=== PATIENT | male | born 1930 | race Caucasian/White ===

== ENCOUNTER 2021-04-02 06:25 | Day surgery (SDC) | payer OTHER ==
[2021-03-29 09:45] LABS: Absolute Lymphocytes (CBC) 1.8 K/uL (0.7-4.9); Basophils % 0.8 % (0-1.3); Lymphocytes % 24.8 % (15.3-44.8); MPV 8.3 fL (7.6-11.3); RBC Red Blood Cell Count 4.42 M/uL (4.33-5.43)
[2021-03-29 09:47] LABS: Protime INR 0.97
[2021-03-29 10:01] LABS: Potassium 3.9 mmol/L (3.5-5.1)
--- NOTE | 2021-03-29 10:10 | RAD REPORT ---
EXAM DESCRIPTION: Racheal Mccrary (2 Views)03/29/2021 9:20 am CLINICAL HISTORY: Preop for catheterization COMPARISON: 1999 FINDINGS: The lungs appear clear of acute infiltrate. The heart is borderline enlarged Postsurgical changes involve the chest. Left pleural thickening IMPRESSION: No acute abnormalities displayed
[2021-03-29 10:13] LABS: Blood Morphology Comment NOT SEEN (NOT SEEN); Platelet Estimate DECR; White Blood Cell Scan OK (OK)
[2021-04-02] MEDS ORDERED: HEPA 1000U/500MLS 1,000 UNIT/500 ML BAG IV ONE (07:08)
[2021-04-02] MEDS ORDERED: LIDOCAINE 1% 20 ML MDV ONE (07:08)
[2021-04-02] MEDS ORDERED: ATROPINE SULF 1 MG/10 ML SYR IV ONE (07:18)
[2021-04-02] MEDS ORDERED: MIDAZOLAM HCL 2 MG/2 ML INJ ONE (07:18)
[2021-04-02] MEDS ORDERED: FENTANYL CITR 100 MCG/2 ML ONE (07:18)
[2021-04-02] MEDS ORDERED: NA CHLORIDE 0.9% 500 ML ONE (07:19)
[2021-04-02 10:19] VITALS: TEMP 97.1
[2021-04-02 14:17] VITALS: O2SAT 100
[2021-04-02 14:18] VITALS: BP 150/74
--- NOTE | 2021-04-02 22:36 | OP ---
Date of Procedure: 04/02/2021 Surgeon: Jonathan Chung MD Machinery Cleaner: Mr. Foreign Martinez. Procedure: Selective bilateral carotid angiogram. Indication: Cerebrovascular disease. Indication: Mr. Gomez is 89 with history of CAD, status post CABG, hypertension, dyslipidemia, TIAs , found to have severe bilateral carotid stenosis by Doppler. Carotid angiogram was planned for to y. Procedure In Detail: Patient was brought to the syrup machine laborer as an outpatient, prepped and draped in the routine sterile fashion, given Versed for sedation. A 6-Bulgarian sheath was introduced in the right c ommon femoral artery successfully. Angiography there was normal. StarClose was used to close the ca se. A JR4 catheter was used to select the right common brachiocephalic artery. Angiography there sh owed an 80% right ICA ostial. The JR4 was then used to select the left common carotid artery. He drew d a 95% ostial left ICA. External carotid arteries had mild diffuse plaquing throughout. 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 The patient tolerated the procedure well. There were no complications. A 6-Bulgarian sheath and catheters were used. Anesthesia: Total conscious sedation 45 minutes. Final Diagnosis: Severe cerebrovascular disease. Plan: For bilateral CEA in [place] and I will make arrangements for that. The patient will have the CD with him. Case was discussed with the family. We will make appointment with him to see a cardio vascular surgeon in [place]. The patient will remain in the hospital for 2 hours of bedrest. After his StarClose he can go home. I will see him in the office after his surger y. CELY/EZEQUIEL Voice ID: [id number] Report ID: [id number]
== END 2021-04-02 14:00 | disposition home or self-care (01) ==
LOC: CCL 06:25
DX: I65.23 Occlusion and stenosis of bilateral carotid arteries (principal); I25.10 Atherosclerotic heart disease of native coronary artery without angina pectoris; Q25.1 Coarctation of aorta; I10 Essential (primary) hypertension; E78.00 Pure hypercholesterolemia, unspecified; E78.2 Mixed hyperlipidemia; Z95.1 Presence of aortocoronary bypass graft; Z86.73 Personal history of transient ischemic attack (TIA), and cerebral infarction without residual deficits; Z87.891 Personal history of nicotine dependence; Z88.0 Allergy status to penicillin; Z88.6 Allergy status to analgesic agent; Z20.822 Contact with and (suspected) exposure to COVID-19; Z82.49 Family history of ischemic heart disease and other diseases of the circulatory system
CPT/HCPCS: 93005; 85025; 80048; 36415; 85610; 85730; 71046; 36222; U0002; C1893; J2250; J3010; J7040; J1644

== ENCOUNTER 2021-05-27 08:22 | Emergency (ER) | payer OTHER ==
[2021-05-27 09:37] LABS: Protime INR 0.99
[2021-05-27 09:40] LABS: Absolute Lymphocytes (CBC) 1.2 K/uL (0.7-4.9); Basophils % 0.5 % (0-1.3); Hematocrit 36.9 % (39.6-49.0); Lymphocytes % 10.5 % (15.3-44.8); RBC Red Blood Cell Count 4.08 M/uL (4.33-5.43)
[2021-05-27 09:43] LABS: Arterial Blood Carboxyhemoglob 1.8 % (0-1.5); Blood Gas Oxyhemoglobin 93.5 % (94-97)
[2021-05-27 09:52] LABS: ALT/SGPT 20 U/L (12-78); AST/SGOT 21 U/L (15-37); Albumin 3.4 g/dL (3.4-5.0); Alkaline Phosphatase 91 U/L (45-117); Amylase 59 U/L (25-115); BUN Blood Urea Nitrogen 19 mg/dL (7-18); Bicarbonate 26 mmol/L (21-32); Bilirubin Direct 0.3 mg/dL (0-0.2); Bilirubin Total 0.9 mg/dL (0.2-1.0); CKMB Creatine Kinase MB 1.2 ng/mL (1.0-3.6); Creatine Phosphokinase 88 U/L (39-308); Glucose Level 94 mg/dL (74-106); Lipase 97 U/L (73-393); Potassium 3.7 mmol/L (3.5-5.1); Protein, Total 7.4 g/dL (6.4-8.2); Sodium Level 132 mmol/L (136-145); Troponin (Emerg Dept Use Only) < 0.02 ng/mL (0.0-0.045)
--- NOTE | 2021-05-27 10:04 | RAD REPORT ---
EXAM DESCRIPTION: CT - Head Brain Wo Cont - 05/27/2021 9:55 am CLINICAL HISTORY: Alteration of awareness/confusion COMPARISON: None TECHNIQUE: Computed axial tomography of the head was obtained. IV contrast was not requested. All CT scans are performed using dose optimization technique as appropriate and may include automated exposure control or mA/KV adjustment according to patient size. FINDINGS: An intracranial bleed is not seen . The ventricles are normal in caliber. No extra-axial fluid collection is noted. Mild low-density areas within periventricular, deep and subcortical white matter likely represent isc hemic changes secondary to small vessel disease. Fluid within the sinuses/ mastoids is not seen. IMPRESSION: No acute intracranial abnormality is seen. If patient's symptoms persist MRI of the bra in would be recommended.
--- NOTE | 2021-05-27 10:09 | RAD REPORT ---
EXAM DESCRIPTION: Racheal Single View05/27/2021 10:02 am CLINICAL HISTORY: Somnolence COMPARISON: March 2021 FINDINGS: The lungs appear clear of acute infiltrate. The heart is mildly enlarged. Pacemaker leads are in place. IMPRESSION: No acute abnormalities displayed
[2021-05-27 11:36] LABS: Urine Blood Trace-intact (Negative); Urine Glucose Negative (Negative); Urine Protein Negative (Negative); Urine Specific Gravity 1.015 (1.005-1.030); Urine pH 6.5 (5.0-7.0)
--- NOTE | 2021-05-27 11:56 | RAD REPORT ---
EXAM DESCRIPTION: USCarotid Artery Msevxtele42/17/2021 11:37 am CLINICAL HISTORY: Carotid surgery/chest pain/confusion COMPARISON: None FINDINGS: The velocity of the right internal carotid artery equals 197 cm/sec. The right ICA/CCA rat io 4.1 Elevated velocity right external carotid artery without visualization of significant plaque The velocity of the left internal carotid artery equals 124 cm/sec. The left ICA/CCA ratio 1.6 Mild plaque is present within the carotid arteries. The vertebral arteries demonstrate antegrade flow IMPRESSION: Mild plaque within the carotid arteries . Elevated velocity right internal carotid artery probably secondary to it being tortuous. If the patient's symptoms do not resolve MRA neck may be helpful NASCET criteria used. Mild 0-49% stenosis Moderate 50-69% stenosis Severe 70-99% stenosis
[2021-05-27 12:04] LABS: Urine Bacteria NONE SEEN /HPF (NONE SEEN); Urine RBC <5 /HPF (NONE SEEN)
--- NOTE | 2021-05-27 12:43 | ER ---
Nurse's Notes [facility] Name: Blaine Gomez Age: 89 yrs Sex: Male : 1930 Arrival Date: 05/27/2021 Time: 08:22 Bed 8 Private MD: Shayan Boone V Diagnosis: Altered mental status, unspecified Presentation: 05/27 08:31 Chief complaint: Patient's son or daughter states: He had right carotid surgery at [address] on , discharged yesterday and was doing well. Checked on him this morning and he is disoriented, his speech is a little slurred, wobbly on his feet and fatigued. Called the hospital and they said to bring him here to be evaluated. Pt denies pain, pt denies urinary symptoms, pt reports feeling sleepy. Coronavirus screen: At this time, the client does not indicate any symptoms associated with coronavirus-19. Ebola Screen: No symptoms or risks identified at this time. Initial Sepsis Screen: Does the patient meet any 2 criteria? No. Patient's initial sepsis screen is negative. Does the patient have a suspected source of infection? No. Patient's initial sepsis screen is negative. Risk Assessment: Do you want to hurt yourself or someone else? Patient reports no desire to harm self or others. Onset of symptoms is unknown. 08:31 Method Of Arrival: Wheelchair [facility] 08:31 Acuity: MANDEEP 3 jl7 Triage Assessment: 08:35 General: Appears in no apparent distress. uncomfortable, Behavior is calm, cooperative, jl7 appropriate for age. Pain: Denies pain. Neuro: Level of Consciousness is awake, alert, obeys commands, Oriented to person, place, time, situation. Historical: - Allergies: 08:35 Codeine; jl7 08:35 PENICILLINS; jl7 - Home Meds: 08:35 atorvastatin oral [Active]; jl7 - PMHx: 08:35 Hypercholesterolemia; jl7 - PSHx: 08:35 bilateral carotid; Coronary artery bypass graft; jl7 - Immunization history:: Adult Immunizations up to date, Client reports receiving the 2nd dose of the Covid vaccine, Moderna. - Social history:: Smoking status: Patient denies any tobacco usage or history of. Screenin:48 Abuse screen: Denies threats or abuse. Denies injuries from another. Nutritional tw5 screening: No deficits noted. Tuberculosis screening: No symptoms or risk factors identified. Fall Risk None identified. Gait- Weak (10 pts.). Assessment: 08:48 General: Behavior is calm, cooperative, appropriate for age, Reports Nish, the son twEnoch states that his father just had surgery on his right carotid artery and was discharged from [facility] in [place] yesterday. However upon arrival to his fathers (Blaine) house Blaine was really listless, fatigued, and disoriented. General: Reports fatigue for. Pain: Denies pain. Pain. Neuro: Level of Consciousness is awake, alert, obeys commands, Oriented to person, place, time, situation, Reports weakness. Cardiovascular: Heart tones S1 S2 present Patient's skin is warm and dry. Respiratory: Breath sounds are clear bilaterally. Derm: Skin is fragile, is thin, has skin tears on forearms. 11:16 Reassessment: Patient appears in no apparent distress at this time. No changes from tw5 previously documented assessment. Patient and/or family updated on plan of care and expected duration. Pain level reassessed. 12:21 Reassessment: Patient appears in no apparent distress at this time. No changes from tw5 previously documented assessment. Patient and/or family updated on plan of care and expected duration. Pain level reassessed. Patient states feeling better. Patient states symptoms have improved. Pain: Denies pain. 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 Surgical team at [facility] in [place]. . tw5 12:54 Reassessment: Patient appears in no apparent distress at this time. No changes from tw5 previously documented assessment. Patient and/or family updated on plan of care and expected duration. Pain level reassessed. Patient states feeling better. Vital Signs: 08:31 BP 121 / 71; Pulse 82; Resp 17; Temp 97.8(O); Pulse Ox 100% on R/A; Weight 61.23 kg; jl7 Height 5 ft. 6 in. (167.64 cm); Pain 0/10; 08:54 BP 126 / 80; Pulse 79; Resp 20; Pulse Ox 99% on R/A; Pain 0/10; tw5 11:16 BP 116 / 70; Pulse 89; Resp 18; Pulse Ox 100% on R/A; Pain 0/10; tw5 12:25 BP 122 / 79; Pulse 86; Resp 20; Pulse Ox 97% on R/A; Pain 0/10; tw5 12:54 BP 114 / 73; Pulse 83; Resp 20; Temp 98.1; Pulse Ox 95% on R/A; Pain 0/10; tw5 08:31 Body Mass Index 21.79 (61.23 kg, 167.64 cm) jl7 ED Course: 08:22 Patient arrived in ED. am2 08:23 Shayan Boone MD is Private Physician. am2 08:35 Triage completed. jl7 08:35 Arm band placed on right wrist. jl7 08:40 Keenan Holloway MD is Attending Physician. kdr 08:48 Lisa Bustamante is Primary Nurse. tw5 08:48 Patient has correct armband on for positive identification. Placed in gown. Bed in low tw5 position. Call light in reach. Side rails up X2. Adult w/ patient. workforce management consultant on. Pulse ox on. NIBP on. Door closed. Noise minimized. Lights dimmed. Moved to private room. Warm blanket given. Verbal reassurance given. 08:52 EKG done, by ED staff, reviewed by Keenan Holloway MD. tw5 09:15 Inserted saline lock: 20 gauge in right antecubital area, using aseptic technique. jd3 Blood collected. 09:55 CT Head Brain wo Cont In Process Unspecified. EDMS 10:02 Chest Single View XRAY In Process Unspecified. EDMS 10:42 Amylase, Serum Sent. tw5 10:42 CBC with Diff Sent. tw5 10:42 CPK Sent. tw5 10:42 Basic Metabolic Panel Sent. tw5 10:42 Blood Culture Adult (2) Sent. tw5 10:43 COVID-19 SARS RT PCR (Document "Date of Onset" if Symptomatic) Sent. tw5 11:16 Ultrasound at the bedside. tw5 11:37 Carotid Artery Bilateral In Process Unspecified. EDMS 12:27 ED physician to see patient. tw5 12:41 Shayan Boone MD is Referral Physician. kdr 12:54 No provider procedures requiring assistance completed. IV discontinued, intact, tw5 bleeding controlled, No redness/swelling at site. Pressure dressing applied. Administered Medications: No medications were administered Outcome: 12:42 Discharge ordered by . kdr 12:54 Discharged to home ambulatory. tw5 12:54 Condition: good 12:54 Discharge instructions given to 12:54 Discharge instructions given to patient, family, Instructed on discharge instructions, follow up and referral plans. Demonstrated understanding of instructions, follow-up care. 12:55 Patient left the ED. tw5 Signatures: Dispatcher [employer] EDMS Keenan Holloway MD MD kdr Leal, Jahala RN RN jl7 Anne Reyes Jonathon RN RN jLisa Ash tw5 Corrections: (The following items were deleted from the chart) 08:38 08:35 PSHx: bilateral carotid; melissa jl7
--- NOTE | 2021-05-27 12:43 | EDPHYS ---
Physician Documentation [facility] Name: Blaine Gomez Age: 89 yrs Sex: Male : 1930 Arrival Date: 05/27/2021 Time: 08:22 Bed 8 Private MD: Shayan Boone V ED Physician Keenan Holloway HPI: 05/27 09:33 This 89 yrs old Male presents to ER via Wheelchair with complaints of Post kdr Surgical Pain, Altered Mental Status. 09:33 The patient presents with decreased mental status, decreased responsiveness. Onset: The kdr symptoms/episode began/occurred this morning. Possible causes: sepsis, Patient had carotid surgery on . Associated signs and symptoms: Pertinent positives: confusion, weakness. Patient's baseline: Neuro: alert and fully oriented, Motor: no deficits, Ambulation: walks without assistance, Speech: normal, The patient has a previous history of Recent surgery, According to the son, the patient is more somnolent today than he normally has been post procedure. The patient has not experienced similar symptoms in the past. The patient has been recently seen by a physician: For carotid surgery on . 15:47 Patient had carotid surgery at [facility] on . He was discharged kdr yesterday and was doing well. When his son checked on him this morning, he noted that he was disoriented. Speech seems slurred and he was wobbly on his feet and seemed fatigued. The patient had no other signs or symptoms and no other focal complaints. On arrival initial evaluation the patient appeared to be more or less at baseline. He did not appear toxic in any way. Historical: - Allergies: 08:35 Codeine; jl7 08:35 PENICILLINS; jl7 - Home Meds: 08:35 atorvastatin oral [Active]; jl7 - PMHx: 08:35 Hypercholesterolemia; jl7 - PSHx: 08:35 bilateral carotid; Coronary artery bypass graft; jl7 - Immunization history:: Adult Immunizations up to date, Client reports receiving the 2nd dose of the Covid vaccine, Moderna. - Social history:: Smoking status: Patient denies any tobacco usage or history of. ROS: 15:46 Constitutional: Negative for fever, chills, and weight loss, Eyes: Negative for injury, kdr pain, redness, and discharge, ENT: Negative for injury, pain, and discharge, Neck: Negative for injury, pain, and swelling, Cardiovascular: Negative for chest pain, palpitations, and edema, Respiratory: Negative for shortness of breath, cough, wheezing, and pleuritic chest pain, Abdomen/GI: Negative for abdominal pain, nausea, vomiting, diarrhea, and constipation, Back: Negative for injury and pain, : Negative for injury, bleeding, discharge, and swelling, MS/Extremity: Negative for injury and deformity, Skin: Negative for injury, rash, and discoloration, Psych: Negative for depression, anxiety, suicide ideation, homicidal ideation, and hallucinations, Allergy/Immunology: Negative for hives, rash, and allergies, Endocrine: Negative for neck swelling, polydipsia, polyuria, polyphagia, and marked weight changes, Hematologic/Lymphatic: Negative for swollen nodes, abnormal bleeding, and unusual bruising. 15:46 Neuro: Positive for altered mental status, weakness. Exam: 11:13 ECG was reviewed by the Attending Physician. kdr 15:47 Constitutional: This is a well developed, well nourished patient who is awake, alert, kdr and in no acute distress. Head/Face: Normocephalic, atraumatic. Eyes: Pupils equal round and reactive to light, extra-ocular motions intact. Lids and lashes normal. Conjunctiva and sclera are non-icteric and not injected. Cornea within normal limits. Periorbital areas with no swelling, redness, or edema. Neck: Trachea midline, no thyromegaly or masses palpated, and no cervical lymphadenopathy. Supple, full range of motion without nuchal rigidity, or vertebral point tenderness. No Meningismus. Chest/axilla: Normal chest wall appearance and motion. Nontender with no deformity. No lesions are appreciated. Cardiovascular: Regular rate and rhythm with a normal S1 and S2. No gallops, murmurs, or rubs. Normal PMI, no JVD. No pulse deficits. Respiratory: Lungs have equal breath sounds bilaterally, clear to auscultation and percussion. No rales, rhonchi or wheezes noted. No increased work of breathing, no retractions or nasal flaring. Abdomen/GI: Soft, non-tender, with normal bowel sounds. No distension or tympany. No guarding or rebound. No evidence of tenderness throughout. Back: No spinal tenderness. No costovertebral tenderness. Full range of motion. Skin: Warm, dry with normal turgor. Normal color with no rashes, no lesions, and no evidence of cellulitis. MS/ Extremity: Pulses equal, no cyanosis. Neurovascular intact. Full, normal range of motion. Neuro: Awake and alert, GCS 15, oriented to person, place, time, and situation. Cranial nerves II-XII grossly intact. Motor strength 5/5 in all extremities. Sensory grossly intact. Cerebellar exam normal. Normal gait. Psych: Awake, alert, with orientation to person, place and time. Behavior, mood, and affect are within normal limits. 15:47 Neck: There is postop surgical incisions on the right inferior aspect of the neck which appear to be healing appropriately. Vital Signs: 08:31 BP 121 / 71; Pulse 82; Resp 17; Temp 97.8(O); Pulse Ox 100% on R/A; Weight 61.23 kg; jl7 Height 5 ft. 6 in. (167.64 cm); Pain 0/10; 08:54 BP 126 / 80; Pulse 79; Resp 20; Pulse Ox 99% on R/A; Pain 0/10; tw5 11:16 BP 116 / 70; Pulse 89; Resp 18; Pulse Ox 100% on R/A; Pain 0/10; tw5 12:25 BP 122 / 79; Pulse 86; Resp 20; Pulse Ox 97% on R/A; Pain 0/10; tw5 12:54 BP 114 / 73; Pulse 83; Resp 20; Temp 98.1; Pulse Ox 95% on R/A; Pain 0/10; tw5 08:31 Body Mass Index 21.79 (61.23 kg, 167.64 cm) jl7 MDM: 12:38 ED course: Reviewed and discussed all findings including CT and Doppler report. I also kdr discussed the case with the on-call resident at the time. The resident for the surgical service was primarily concerned with any issues regarding the recent carotid surgery. Specifically aneurysm or other complications. Report did not show that. After discussing the case with both the patient and son, the decision was made by them to decline transfer to the medical service in [place] at [facility]. He indicated he will follow up or return here if needed Otherwise will follow-up as scheduled.. 12:42 Patient medically screened. kdr 15:57 Data reviewed: vital signs, nurses notes, lab test result(s), radiologic studies. kdr Counseling: I had a detailed discussion with the patient and/or guardian regarding: the historical points, exam findings, and any diagnostic results supporting the discharge/admit diagnosis, lab results, radiology results, the need for outpatient follow up. ED course: Thoroughly discussed all aspects of the patient's presentation and findings. Offered to transfer the patient to [facility] or remain here with neurology consult. Patient asked to be discharged. The son was present at the time of these discussions and was in agreement with the disposition home. 15:58 ED course: In my discussions I indicated that a stroke could not be definitively ruled kdr out without MRI and possible neurological consultation. Patient and son indicated that they understood this but opted to be discharged home for follow-up as scheduled. 05/27 08:58 Order name: Amylase, Serum kdr 05/27 08:58 Order name: Basic Metabolic Panel kdr 05/27 08:58 Order name: Blood Culture Adult (2) kdr 05/27 08:58 Order name: CBC with Diff kdr 05/27 08:58 Order name: CPK kdr 05/27 08:58 Order name: Ckmb; Complete Time: 10:28 kdr 05/27 08:58 Order name: LFT's; Complete Time: 10:28 kdr 05/27 08:58 Order name: Lactate; Complete Time: 10:28 kdr 05/27 08:58 Order name: Lipase; Complete Time: 10:28 kdr 05/27 08:58 Order name: Procalcitonin; Complete Time: 10:28 kdr 05/27 08:58 Order name: Protime (+inr); Complete Time: 10:28 kdr 05/27 08:58 Order name: Ptt, Activated; Complete Time: 10:28 kdr 05/27 08:58 Order name: Troponin (emerg Dept Use Only); Complete Time: 10:28 kdr 05/27 08:58 Order name: Urine Microscopic Only; Complete Time: 12:24 kdr 05/27 08:58 Order name: Chest Single View XRAY; Complete Time: 10:28 kdr 05/27 08:58 Order name: Accucheck; Complete Time: 09:20 kdr 05/27 08:58 Order name: Cardiac monitoring; Complete Time: 08:58 kdr 05/27 08:58 Order name: EKG - Nurse/Tech; Complete Time: 08:58 kdr 05/27 08:58 Order name: IV Saline Lock - Large Bore; Complete Time: 09:19 kdr 05/27 08:58 Order name: Labs collected and sent; Complete Time: 09:19 kdr 05/27 08:58 Order name: Amylase; Complete Time: 10:28 EDMS 05/27 08:58 Order name: Basic Metabolic Panel; Complete Time: 10:28 EDMS 05/27 08:59 Order name: ABG; Complete Time: 10:28 kdr 05/27 08:59 Order name: Blood Culture EDMS 05/27 08:59 Order name: CBC with Automated Diff; Complete Time: 10:28 EDMS 05/27 08:59 Order name: Creatine Phosphokinase; Complete Time: 10:28 EDMS 05/27 09:00 Order name: COVID-19 SARS RT PCR (Document "Date of Onset" if Symptomatic) kdr 05/27 09:37 Order name: CT Head Brain wo Cont; Complete Time: 10:28 kdr 05/27 10:35 Order name: Carotid Artery Bilateral; Complete Time: 12:24 EDMS 05/27 11:36 Order name: Urine Dipstick-Ancillary; Complete Time: 11:42 EDMS 05/27 08:58 Order name: O2 Per Protocol; Complete Time: 08:58 kdr 05/27 08:58 Order name: O2 Sat Monitoring; Complete Time: 08:58 kdr 05/27 08:58 Order name: Urine Dipstick-Ancillary (obtain specimen); Complete Time: 11:36 kdr EC:13 Rate is 81 beats/min. Rhythm is regular, Sinus arrythmia with No ectopy. QRS [place] is kdr Normal. ID interval is normal. QRS interval is normal. QT interval is normal. Clinical impression: Sinus arrythmia. Administered Medications: No medications were administered Disposition Summary: 05/27/21 12:42 Discharge Ordered Location: Home kdr Problem: new kdr Symptoms: have improved kdr Condition: Stable kdr Diagnosis - Altered mental status, unspecified kdr Followup: kdr - With: Shayan Boone MD - When: 2 - 3 days - Reason: If symptoms return, Further diagnostic work-up, Recheck today's complaints, Continuance of care, Re-evaluation by your physician Discharge Instructions: - Discharge Summary Sheet kdr - Confusion kdr Forms: - Medication Reconciliation Form kdr - Thank You Letter kdr Signatures: Dispatcher [employer] Keenan Thrasher MD MD kdr Ricardo Bello RN RN jl7 Corrections: (The following items were deleted from the chart) 08:38 08:35 PSHx: bilateral carotid; jl7 jl7
[2021-05-27 13:14] VITALS: BP 114/73; TEMP 98.1; O2SAT 95
== END 2021-05-27 12:55 | disposition home or self-care (01) ==
LOC: ER 08:22
DX: R41.82 Altered mental status, unspecified (principal); Z98.890 Other specified postprocedural states; E78.00 Pure hypercholesterolemia, unspecified; Z95.1 Presence of aortocoronary bypass graft; Z20.822 Contact with and (suspected) exposure to COVID-19; Z88.0 Allergy status to penicillin; Z88.5 Allergy status to narcotic agent
CPT/HCPCS: 93005; 87040 ×2; 85025; 80048; 36415; 82150; 82550; 85610; 80076; 83605; 85730; 84484; 82553; 83690; 84145; 70450; 71045; 93880; 82805; 99284; U0003; 81003; 81015

== ENCOUNTER 2021-06-12 07:10 | Day surgery (SDC) | payer OTHER ==
[2021-06-12] MEDS ORDERED: LIDOCAINE 1% 20 ML MDV ONE (07:46)
[2021-06-12] MEDS ORDERED: HEPA 1000U/500MLS 1,000 UNIT/500 ML BAG IV ONE (07:46)
[2021-06-12] MEDS ORDERED: NA CHLORIDE 0.9% 500 ML ONE (07:50)
[2021-06-12] MEDS ORDERED: MIDAZOLAM HCL 2 MG/2 ML INJ ONE (08:11)
[2021-06-12] MEDS ORDERED: FENTANYL CITR 100 MCG/2 ML ONE (08:11)
[2021-06-12] MEDS ORDERED: ATROPINE SULF 1 MG/10 ML SYR IV ONE (08:11)
[2021-06-12 08:23] VITALS: TEMP 97.1
[2021-06-12 10:02] VITALS: BP 151/70; O2SAT 98
--- NOTE | 2021-06-12 15:26 | OP ---
Surgeon: Jonathan Chung MD Lookback Coordinator: Mr. Keenan Bernal. The patient will remain in the hospital for 2 hours after bedrest. He will go home and I will see christelle m in the office in the next 2 weeks. Procedure Performed: Admitted to my service as an outpatient on 06/12/2021 for selective bilateral c arotid angiograms. Indication: Abnormal carotid Doppler bilaterally worse on the left than the right. Mr. Gomez is 89 . Has had a history of hypertension, dyslipidemia, and coronary artery disease, status post CABG. Procedure In Detail: Brought to the quality lab assoc today outpatient, prepped and draped in routine sterile fashion. Given Versed and fentanyl for sedation. A JR4 6-Samoan catheter was used to do the diagno stic carotid angiogram. He had a 6-Samoan sheath introduced in the right common femoral artery succe ssfully using the Seldinger technique and 10 cc of Xylocaine. Separately injected the right common c arotid and left common carotid. He had diffuse plaquing in both common carotids. The left external carotid had minor plaquing. The right one had 70% stenosis. Both ICAs had 50% stenosis. They were tortuous, kinked. There were no complications. Blood Loss: 5 cc. Anesthesia: Total conscious sedation 45 minutes. Angiography in the groin was normal. Angio-Seal was used to close the case. Final Diagnosis: [id number] cerebrovascular disease. Plan: To continue medical therapy. CELY/EZEQUIEL Voice ID: [id number] Report ID: [id number]
== END 2021-06-12 09:54 | disposition home or self-care (01) ==
LOC: CCL 07:10
DX: I65.23 Occlusion and stenosis of bilateral carotid arteries (principal); I77.1 Stricture of artery; I25.10 Atherosclerotic heart disease of native coronary artery without angina pectoris; Z88.0 Allergy status to penicillin; Z88.6 Allergy status to analgesic agent; Z20.822 Contact with and (suspected) exposure to COVID-19
CPT/HCPCS: 36222; U0003; C1893; J2250; J3010; J7040; J1644

== ENCOUNTER 2022-01-02 09:45 | Emergency (ER) | payer OTHER ==
--- OUTSIDE RECORDS SUMMARY | 2022-01-02 09:48 | XMS REPORT | Continuity of Care Document ---
:[address] [facility] t Address [address] [place] [address] [address]. [address] [place] [address] Care Team Providers Name Role Phone OLIVA WHITE Attending Clinician Unavailable OLIVA WHITE Admitting Clinician Unavailable Payers Payer Name Policy Type Policy Number Effective Date Expiration Date Shahriar maldonado MEDICARE A B [id number] 1997 00:00:00 GENERIC MEDICARE [id number] 2008 SUPPLEMENT 00:00:00 Problems This patient has no known problems. Allergies, Adverse Reactions, Alerts Allergy Allergy Status Severity Reaction(s) Onset Inactive Treating Comm ents Source Name Type Date Date Clinician CODEINE Allergy Active High Other [facility] 04-04 00:00: 00 PENICILL Allergy Active [facility] IN 04-04 00:00: 00 Medications This patient has no known medications. Vital Signs Vital Name Observation Time Observation Value Comments Source WEIGHT 2021-04-10 07:01:00 59.1 kg HEIGHT 2021-04-09 08:18:00 165 cm WEIGHT 2021-04-09 08:18:00 54.8 kg HEIGHT 2021-04-05 09:52:00 165 cm WEIGHT 2021-04-05 09:52:00 57.6 kg HEIGHT 2021-06-07 09:40:00 167.6 cm WEIGHT 2021-05-25 05:00:00 60.873 kg HEIGHT 2021-05-24 06:10:00 167.6 cm WEIGHT 2021-05-24 06:10:00 58.968 kg WEIGHT 2021-05-25 05:00:00 60.873 kg HEIGHT 2021-05-24 06:10:00 167.6 cm WEIGHT 2021-05-24 06:10:00 58.968 kg HEIGHT 2021-04-24 09:20:00 165 cm WEIGHT 2021-04-24 09:20:00 57.607 kg HEIGHT 2021-04-24 09:20:00 165 cm WEIGHT 2021-04-24 09:20:00 57.607 kg WEIGHT 2021-04-10 07:01:00 59.1 kg HEIGHT 2021-04-09 08:18:00 165 cm WEIGHT 2021-04-09 08:18:00 54.8 kg HEIGHT 2021-04-05 09:52:00 165 cm WEIGHT 2021-04-05 09:52:00 57.6 kg HEIGHT 2021-04-04 10:59:00 165.1 cm WEIGHT 2021-04-04 10:59:00 57.607 kg HEIGHT 2021-04-04 10:59:00 165.1 cm WEIGHT 2021-04-04 10:59:00 57.607 kg Procedures This patient has no known procedures. Encounters Start End Encounter Admission Attending Care Care Encounter Source Date/Time Date/Time Type Type Clinicians Facility Department ID 2021-05-20 Inpatient TONY, [facility] Surgery [id number] SLE 12:23:23 JOSELUIS 2021-05-20 Inpatient [facility] Surgery [id number] SLE 10:01:13 JOSELUIS 2021-06-07 2021-06-07 Outpatient [facility] [id number] SLE 10:39:33 23:59:00 2021-06-07 2021-06-07 Outpatient [facility] [id number] [facility] 09:30:33 09:30:33 JOSELUIS 2021-05-30 2021-05-30 Outpatient TONY [facility] [id number] SLE 00:00:00 00:00:00 JOSELUIS 2021-05-24 2021-05-26 [facility]patient [facility] Surgery [id number] SLE 05:27:00 11:40:00 JOSELUIS 2021-05-24 2021-05-[address] [facility] [id number] [facility] 05:27:00 23:59:00 Allison 2021-05-02 2021-05-02 Outpatient SLE SLE [id number] SLE 00:00:00 00:00:00 2021-04-24 2021-04-24 Outpatient NELLY PARKER [facility] [id number] SLE 00:00:00 00:00:00 JOSELUIS 2021-04-09 2021-04-[address] [facility] [id number] [facility] 07:49:00 23:59:00 [facility] 2021-04-05 2021-04-05 Outpatient MED[facility]AT [facility] [id number] SLE 00:00:00 00:00:00 2021-04-04 2021-04-04 Outpatient MEDHAT WHITE [facility] [id number] SLE 00:00:00 00:00:00 JOSELUIS Results Test Description Test Time Test Comments Results Result Sourc e Comments TISSUE EXAM 2021-05-28 Surgical Pathology 18:16:28 Report Case: [id number] Authorizing Provider: Joseluis White, Collected: 05/24/2021 09:11 AM Ordering Location: [facility] Received: 05/24/2021 01:55 PM PERIOPERATIVE SERVICES Pathologist: Justen Andrew MD Specimen: Plaque, Right Carotid Plaque ARTERY, LEFT CAROTID, ENDARTERECTOMY:CALCIFI C ATHEROSCLEROTIC PLAQUE Signing Pathologist Direct Phone Line: [phone] ally signed by Justen Andrew MD on 05/28/2021 at 6:16 [id number]; [id number]. PlaqueA. Received fresh labeled with the patient's name, MRN, and "right carotid plaque" is a 9 cm in length by from 0.5 to 1.1 cm in diameter previously opened, cylindrical vascular tissue with marked calcification and thickening of the wall away from the bifurcated end. The wall ranges in thickness from 0.1 to 0.7 cm. The internal surface displays yellow calcified plaque and areas of friable hemorrhage. The external surface is roughened and fibrous. The cut surface of the thickest segment revealed friable dozier-red to yellow calcification. Glaze Maker sections are submitted in cassette A1 following decalcification.(KRISTEL, resident)Performed CBC (HEMOGRAM ONLY) 2021-05-26 09:35:19 Test Item Value Reference Range Interpretation Comme nts WHITE BLOOD CELL COUNT (BEAKER) (test code = 775) 10.8 K/ L 3.5- 10.5 H RED BLOOD CELL COUNT (BEAKER) (test code = 761) 4.05 M/ L 4.63-6 .08 L HEMOGLOBIN (BEAKER) (test code = 410) 12.4 GM/DL 13.7-17.5 L HEMATOCRIT (BEAKER) (test code = 411) 36.6 % 40.1-51.0 L MEAN CORPUSCULAR VOLUME (BEAKER) (test code = 753) 90.4 fL 79. 0-92.2 MEAN CORPUSCULAR HEMOGLOBIN (BEAKER) (test code = 751) 30.6 pg 25.7-32.2 MEAN CORPUSCULAR HEMOGLOBIN CONC (BEAKER) (test code = 752) 33.9 GM/DL 32.3-36.5 RED CELL DISTRIBUTION WIDTH (BEAKER) (test code = 412) 13.5 % 11.6-14.4 PLATELET COUNT (BEAKER) (test code = 756) 151 K/CU MM 150-450 MEAN PLATELET VOLUME (BEAKER) (test code = 754) 9.5 fL 9.4-12 .4 NUCLEATED RED BLOOD CELLS (BEAKER) (test code = 413) 0 /100 WBC 0 -0 BASIC METABOLIC [id number] 05:22:59 Test Item Value Reference Range Interpretation Comments SODIUM (BEAKER) 133 meq/L 136-145 L (test code = 381) POTASSIUM (BEAKER) 3.8 meq/L 3.5-5.1 (test code = 379) CHLORIDE (BEAKER) 99 meq/L 98-107 (test code = 382) CO2 (BEAKER) (test 24 meq/L 22-29 code = 355) BLOOD UREA NITROGEN 14 mg/dL 7-21 (BEAKER) (test code = 354) CREATININE (BEAKER) 0.82 mg/dL 0.57-1.25 (test code = 358) GLUCOSE RANDOM 92 mg/dL 70-105 (BEAKER) (test code = 652) CALCIUM (BEAKER) 9.1 mg/dL 8.4-10.2 (test code = 697) EGFR (BEAKER) (test 89 mL/min/1.73 ESTIMA TORI GFR IS code = 1092) sq m NOT ACCURATE CREATININE CLEARANCE IN PREDICTING GLOMERULAR FILTRATION RATE . ESTIMATED GFR I S NOT APPLICABLE FOR DIALYSIS PATIEN TS. Shot Polisher ID - JAKE GCBC (HEMOGRAM ONLY)2021-05-25 08:13:43 Test Item Value Reference Range Interpretation Comments WHITE BLOOD CELL COUNT (BEAKER) 17.2 K/ L 3.5-10.5 H (test code = 775) RED BLOOD CELL COUNT (BEAKER) 3.78 M/ L 4.63-6.08 L (test code = 761) HEMOGLOBIN (BEAKER) (test code = 11.7 GM/DL 13.7-17.5 L 410) HEMATOCRIT (BEAKER) (test code = 35.7 % 40.1-51.0 L 411) MEAN CORPUSCULAR VOLUME (BEAKER) 94.4 fL 79.0-92.2 H (test code = 753) MEAN CORPUSCULAR HEMOGLOBIN 31.0 pg 25.7-32.2 (BEAKER) (test code = 751) MEAN CORPUSCULAR HEMOGLOBIN CONC 32.8 GM/DL 32.3-36.5 (BEAKER) (test code = 752) RED CELL DISTRIBUTION WIDTH 13.8 % 11.6-14.4 (BEAKER) (test code = 412) PLATELET COUNT (BEAKER) (test 167 K/CU MM 150-450 code = 756) MEAN PLATELET VOLUME (BEAKER) 11.0 fL 9.4-12.4 (test code = 754) NUCLEATED RED BLOOD CELLS 0 /100 WBC 0-0 (BEAKER) (test code = 413) No platelet clumps seenBASIC METABOLIC [id number] 07:33:54 Test Item Value Reference Range Interpretation Comments SODIUM (BEAKER) 133 meq/L 136-145 L (test code = 381) POTASSIUM (BEAKER) 5.0 meq/L 3.5-5.1 (test code = 379) CHLORIDE (BEAKER) 99 meq/L 98-107 (test code = 382) CO2 (BEAKER) (test 27 meq/L 22-29 code = 355) BLOOD UREA NITROGEN 16 mg/dL 7-21 (BEAKER) (test code = 354) CREATININE (BEAKER) 0.94 mg/dL 0.57-1.25 (test code = 358) GLUCOSE RANDOM 96 mg/dL 70-105 (BEAKER) (test code = 652) CALCIUM (BEAKER) 9.4 mg/dL 8.4-10.2 (test code = 697) EGFR (BEAKER) (test 76 mL/min/1.73 ESTIMA TORI GFR IS code = 1092) sq m NOT ACCURATE CREATININE CLEARANCE IN PREDICTING GLOMERULAR FILTRATION RATE . ESTIMATED GFR I S NOT APPLICABLE FOR DIALYSIS PATIEN TS. Shot Polisher ID - EMERSONHGB/HCT (H&H) - STAT [id number] 09:50:26 Test Item Value Reference Range Interpretation Comments HEMOGLOBIN (BEAKER) (test code = 11.7 GM/DL 13.0-16.8 L 410) HEMATOCRIT (BEAKER) (test code = 34.0 % 40.0-50.0 L 411) [id number] 09:07:38 Test Item Value Reference Range Interpretation Comments ACTIVATED CLOTTING TIME 230 sec : 74 -137 seconds, (BEAKER) (test code = Baseli ne: TESTED AT 441) [facility] [address] [facility], [address] 30: Shot Polisher/Techni cassie ID = [id number] for JONES OCHOA [id number] 09:07:08 Test Item Value Reference Range Interpretation Comments ACTIVATED CLOTTING TIME 125 sec : 74 -137 seconds, (BEAKER) (test code = Baseli ne: TESTED AT 441) [facility] [address] [place] [address], 770 30: Shot Polisher/Techni cassie ID = [id number] for JONES OCHOA BASIC METABOLIC [id number] 07:32:53 Test Item Value Reference Range Interpretation Comments SODIUM (BEAKER) 139 meq/L 136-145 (test code = 381) POTASSIUM (BEAKER) 4.3 meq/L 3.5-5.1 Specimen slightly (test code = 379) hemolyzed CHLORIDE (BEAKER) 105 meq/L 98-107 (test code = 382) CO2 (BEAKER) (test 23 meq/L 22-29 code = 355) BLOOD UREA NITROGEN 14 mg/dL 7-21 (BEAKER) (test code = 354) CREATININE (BEAKER) 0.95 mg/dL 0.57-1.25 Specimen slightly (test code = 358) hemolyzed GLUCOSE RANDOM 78 mg/dL 70-105 (BEAKER) (test code = 652) CALCIUM (BEAKER) 9.4 mg/dL 8.4-10.2 (test code = 697) EGFR (BEAKER) (test 75 mL/min/1.73 ESTIMA TORI GFR IS code = 1092) sq m NOT ACCURATE CREATININE CLEARANCE IN PREDICTING GLOMERULAR FILTRATION RATE . ESTIMATED GFR I S NOT APPLICABLE FOR DIALYSIS PATIEN TS. Shot Polisher ID - JAKE GCBC W/PLT COUNT & AUTO [id number] 07:19:58 Test Item Value Reference Range Interpretation Comments WHITE BLOOD CELL COUNT 9.1 K/ L 3.5-10.5 (BEAKER) (test code = 775) RED BLOOD CELL COUNT 4.43 M/ L 4.63-6.08 L (BEAKER) (test code = 761) HEMOGLOBIN (BEAKER) 13.4 GM/DL 13.7-17.5 L (test code = 410) HEMATOCRIT (BEAKER) 42.4 % 40.1-51.0 (test code = 411) MEAN CORPUSCULAR VOLUME 95.7 fL 79.0-92.2 H (BEAKER) (test code = 753) MEAN CORPUSCULAR 30.2 pg 25.7-32.2 HEMOGLOBIN (BEAKER) (test code = 751) MEAN CORPUSCULAR 31.6 GM/DL 32.3-36.5 L HEMOGLOBIN CONC (BEAKER) (test code = 752) RED CELL DISTRIBUTION 13.9 % 11.6-14.4 WIDTH (BEAKER) (test code = 412) PLATELET COUNT (BEAKER) Unab le to report (test code = 756) Platelets due to clumps seen. Pl ease resend lavender and blue top to cor rect the platelets v alue MEAN PLATELET VOLUME 11.3 fL 9.4-12.4 (BEAKER) (test code = 754) NUCLEATED RED BLOOD 0 /100 WBC 0-0 CELLS (BEAKER) (test code = 413) NEUTROPHILS RELATIVE 57 % PERCENT (BEAKER) (test code = 429) LYMPHOCYTES RELATIVE 26 % PERCENT (BEAKER) (test code = 430) MONOCYTES RELATIVE 12 % PERCENT (BEAKER) (test code = 431) EOSINOPHILS RELATIVE 3 % PERCENT (BEAKER) (test code = 432) BASOPHILS RELATIVE 0 % PERCENT (BEAKER) (test code = 437) NEUTROPHILS ABSOLUTE 5.18 K/ L 1.78-5.38 COUNT (BEAKER) (test code = 670) LYMPHOCYTES ABSOLUTE 2.36 K/ L 1.32-3.57 COUNT (BEAKER) (test code = 414) MONOCYTES ABSOLUTE 1.10 K/ L 0.30-0.82 H COUNT (BEAKER) (test code = 415) EOSINOPHILS ABSOLUTE 0.31 K/ L 0.04-0.54 COUNT (BEAKER) (test code = 416) BASOPHILS ABSOLUTE 0.04 K/ L 0.01-0.08 COUNT (BEAKER) (test code = 417) IMMATURE 1 % 0-1 GRANULOCYTES-RELATIVE PERCENT (BEAKER) (test code = 2801) PROTHROMBIN TIME/[id number] 06:24:27 Test Item Value Reference Range Interpretation Comments PROTIME (BEAKER) 12.4 seconds 11.9-14.2 (test code = 759) INR (BEAKER) (test 0.95 See_Comment [Automat ed message] code = 370) The system [employer] generated this result transmitted ref erence range: <=5.90. The reference range was not used to int erpret this result as normal/abnormal . RECOMMENDED COUMADIN/WARFARIN INR THERAPY RANGESSTANDARD DOSE: 2.0 - 3.0 Includes: PROPHYLAXIS forvenous thrombosis, systemic embolization; TREATMENT for venous thrombosis and/or pulmonary embolus.HIGH RISK: Target INR is 2.5-3.5 for patients with mechanical heart valves.[id number] 11:09:33 Test Item Value Reference Range Interpretation Comments PARTIAL THROMBOPLASTIN TIME 40.6 seconds 22.5-36.0 H (BEAKER) (test code = 760) PROTHROMBIN TIME/[id number] 11:08:37 Test Item Value Reference Range Interpretation Comments PROTIME (BEAKER) 12.8 seconds 11.9-14.2 (test code = 759) INR (BEAKER) (test 0.98 See_Comment [Automat ed message] code = 370) The system [employer] generated this result transmitted ref erence range: <=5.90. The reference range was not used to int erpret this result as normal/abnormal . RECOMMENDED COUMADIN/WARFARIN INR THERAPY RANGESSTANDARD DOSE: 2.0 - 3.0 Includes: PROPHYLAXIS forvenous thrombosis, systemic embolization; TREATMENT for venous thrombosis and/or pulmonary embolus.HIGH RISK: Target INR is 2.5-3.5 for patients with mechanical heart valves.BASIC METABOLIC [id number] 11:07:08 Test Item Value Reference Range Interpretation Comments SODIUM (BEAKER) 139 meq/L 136-145 (test code = 381) POTASSIUM (BEAKER) 4.1 meq/L 3.5-5.1 (test code = 379) CHLORIDE (BEAKER) 102 meq/L 98-107 (test code = 382) CO2 (BEAKER) (test 28 meq/L 22-29 code = 355) BLOOD UREA NITROGEN 12 mg/dL 7-21 (BEAKER) (test code = 354) CREATININE (BEAKER) 0.90 mg/dL 0.57-1.25 (test code = 358) GLUCOSE RANDOM 86 mg/dL 70-105 (BEAKER) (test code = 652) CALCIUM (BEAKER) 9.7 mg/dL 8.4-10.2 (test code = 697) EGFR (BEAKER) (test 80 mL/min/1.73 ESTIMA TORI GFR IS code = 1092) sq m NOT ACCURATE CREATININE CLEARANCE IN PREDICTING GLOMERULAR FILTRATION RATE . ESTIMATED GFR I S NOT APPLICABLE FOR DIALYSIS PATIEN TS. Shot Polisher ID - KERI WCBC W/PLT COUNT & AUTO [id number] 10:50:44 Test Item Value Reference Range Interpretation Comments WHITE BLOOD CELL COUNT (BEAKER) 9.2 K/ L 3.5-10.5 (test code = 775) RED BLOOD CELL COUNT (BEAKER) 4.38 M/ L 4.63-6.08 L (test code = 761) HEMOGLOBIN (BEAKER) (test code = 13.4 GM/DL 13.7-17.5 L 410) HEMATOCRIT (BEAKER) (test code = 40.3 % 40.1-51.0 411) MEAN CORPUSCULAR VOLUME (BEAKER) 92.0 fL 79.0-92.2 (test code = 753) MEAN CORPUSCULAR HEMOGLOBIN 30.6 pg 25.7-32.2 (BEAKER) (test code = 751) MEAN CORPUSCULAR HEMOGLOBIN CONC 33.3 GM/DL 32.3-36.5 (BEAKER) (test code = 752) RED CELL DISTRIBUTION WIDTH 13.6 % 11.6-14.4 (BEAKER) (test code = 412) PLATELET COUNT (BEAKER) (test 169 K/CU MM 150-450 code = 756) MEAN PLATELET VOLUME (BEAKER) 9.3 fL 9.4-12.4 L (test code = 754) NUCLEATED RED BLOOD CELLS 0 /100 WBC 0-0 (BEAKER) (test code = 413) NEUTROPHILS RELATIVE PERCENT 66 % (BEAKER) (test code = 429) LYMPHOCYTES RELATIVE PERCENT 20 % (BEAKER) (test code = 430) MONOCYTES RELATIVE PERCENT 9 % (BEAKER) (test code = 431) EOSINOPHILS RELATIVE PERCENT 3 % (BEAKER) (test code = 432) BASOPHILS RELATIVE PERCENT 0 % (BEAKER) (test code = 437) NEUTROPHILS ABSOLUTE COUNT 6.08 K/ L 1.78-5.38 H (BEAKER) (test code = 670) LYMPHOCYTES ABSOLUTE COUNT 1.87 K/ L 1.32-3.57 (BEAKER) (test code = 414) MONOCYTES ABSOLUTE COUNT (BEAKER) 0.86 K/ L 0.30-0.82 H (test code = 415) EOSINOPHILS ABSOLUTE COUNT 0.26 K/ L 0.04-0.54 (BEAKER) (test code = 416) BASOPHILS ABSOLUTE COUNT (BEAKER) 0.04 K/ L 0.01-0.08 (test code = 417) IMMATURE GRANULOCYTES-RELATIVE 1 % 0-1 PERCENT (BEAKER) (test code = 2801) TISSUE [id number] 19:01:00Surgical Pathology Report Case: [id number] Authorizing Provider: Joseluis White, Collected: 04/09/2021 11:45 AM Ordering Location: [facility] Received: 04/09/2021 02:48 PM PERIOPERATIVE SERVICES Pathologist: Justen Andrew MD Specimen: Plaque, Left Carotid Plaque ARTERY, LEFT CAROTID, ENDARTERECTOMY:CALCIFIC ATHEROSCLEROTIC PLAQUE Signing Pathologist Direct Phone Line: [phone] signed by Justen Andrew MD on 04/12/2021 at 7:01 [id number]; [id number], left PlaqueReceived fresh labeled the patient's name, accession number and "left carotid plaque" yenny 4.5 cm in length by 0.5 cm in diameter dozier-yellow, tubular piece of focally calcified plaque. Glaze Maker sections are submitted in A1 following decalcification.ARCHIE Fishman, HT (ASCP)PerformedCBC W/PLT COUNT & AUTO DIFFERENTIAL 2021-04-10 12:45:00 Test Item Value Reference Range Interpretation Comments WHITE BLOOD CELL COUNT 10.7 K/ L 3.5-10.5 H (BEAKER) (test code = 775) RED BLOOD CELL COUNT 3.79 M/ L 4.63-6.08 L (BEAKER) (test code = 761) HEMOGLOBIN (BEAKER) 11.6 GM/DL 13.7-17.5 L (test code = 410) HEMATOCRIT (BEAKER) 35.4 % 40.1-51.0 L (test code = 411) MEAN CORPUSCULAR 93.4 fL 79.0-92.2 H VOLUME (BEAKER) (test code = 753) MEAN CORPUSCULAR 30.6 pg 25.7-32.2 HEMOGLOBIN (BEAKER) (test code = 751) MEAN CORPUSCULAR 32.8 GM/DL 32.3-36.5 HEMOGLOBIN CONC (BEAKER) (test code = 752) RED CELL DISTRIBUTION 13.6 % 11.6-14.4 WIDTH (BEAKER) (test code = 412) PLATELET COUNT 187 K/CU MM 150-450 Plt count katie en from (BEAKER) (test code = sodium citrate blue 756) top, due to EDT A plt clumping. MEAN PLATELET VOLUME Unable to report due (BEAKER) (test code = to abn ormal Platelet 754) population distribution. NUCLEATED RED BLOOD 0 /100 WBC 0-0 CELLS (BEAKER) (test code = 413) NEUTROPHILS RELATIVE 77 % PERCENT (BEAKER) (test code = 429) LYMPHOCYTES RELATIVE 12 % PERCENT (BEAKER) (test code = 430) MONOCYTES RELATIVE 10 % PERCENT (BEAKER) (test code = 431) EOSINOPHILS RELATIVE 0 % PERCENT (BEAKER) (test code = 432) BASOPHILS RELATIVE 0 % PERCENT (BEAKER) (test code = 437) NEUTROPHILS ABSOLUTE 8.20 K/ L 1.78-5.38 H COUNT (BEAKER) (test code = 670) LYMPHOCYTES ABSOLUTE 1.25 K/ L 1.32-3.57 L COUNT (BEAKER) (test code = 414) MONOCYTES ABSOLUTE 1.10 K/ L 0.30-0.82 H COUNT (BEAKER) (test code = 415) EOSINOPHILS ABSOLUTE 0.04 K/ L 0.04-0.54 COUNT (BEAKER) (test code = 416) BASOPHILS ABSOLUTE 0.03 K/ L 0.01-0.08 COUNT (BEAKER) (test code = 417) IMMATURE 1 % 0-1 GRANULOCYTES-RELATIVE PERCENT (BEAKER) (test code = 2801) BASIC METABOLIC [id number] 06:55:00 Test Item Value Reference Range Interpretation Comments SODIUM (BEAKER) 133 meq/L 136-145 L (test code = 381) POTASSIUM (BEAKER) 4.9 meq/L 3.5-5.1 (test code = 379) CHLORIDE (BEAKER) 103 meq/L 98-107 (test code = 382) CO2 (BEAKER) (test 23 meq/L 22-29 code = 355) BLOOD UREA NITROGEN 15 mg/dL 7-21 (BEAKER) (test code = 354) CREATININE (BEAKER) 0.85 mg/dL 0.57-1.25 (test code = 358) GLUCOSE RANDOM 110 mg/dL 70-105 H (BEAKER) (test code = 652) CALCIUM (BEAKER) 8.7 mg/dL 8.4-10.2 (test code = 697) EGFR (BEAKER) (test 85 mL/min/1.73 ESTIMA TORI GFR IS code = 1092) sq m NOT ACCURATE CREATININE CLEARANCE IN PREDICTING GLOMERULAR FILTRATION RATE . ESTIMATED GFR I S NOT APPLICABLE FOR DIALYSIS PATIEN TS. Shot Polisher ID - PIAYA LCBC (HEMOGRAM ONLY)2021-04-10 05:49:00 Test Item Value Reference Range Interpretation Comments WHITE BLOOD CELL COUNT (BEAKER) 10.6 K/ L 3.5-10.5 H (test code = 775) RED BLOOD CELL COUNT (BEAKER) 3.59 M/ L 4.63-6.08 L (test code = 761) HEMOGLOBIN (BEAKER) (test code = 11.0 GM/DL 13.7-17.5 L 410) HEMATOCRIT (BEAKER) (test code = 33.6 % 40.1-51.0 L 411) MEAN CORPUSCULAR VOLUME (BEAKER) 93.6 fL 79.0-92.2 H (test code = 753) MEAN CORPUSCULAR HEMOGLOBIN 30.6 pg 25.7-32.2 (BEAKER) (test code = 751) MEAN CORPUSCULAR HEMOGLOBIN CONC 32.7 GM/DL 32.3-36.5 (BEAKER) (test code = 752) RED CELL DISTRIBUTION WIDTH 13.4 % 11.6-14.4 (BEAKER) (test code = 412) PLATELET COUNT (BEAKER) (test code 39 K/CU MM 150-450 L = 756) MEAN PLATELET VOLUME (BEAKER) 12.3 fL 9.4-12.4 (test code = 754) NUCLEATED RED BLOOD CELLS (BEAKER) 0 /100 WBC 0-0 (test code = 413) [id number] 16:14:00 Test Item Value Reference Range Interpretation Comments ACTIVATED CLOTTING TIME 257 sec : 74 -137 seconds, (BEAKER) (test code = Baseli ne: TESTED AT 441) [facility] [address] [facility], [address]70 30: Shot Polisher/Techni cassie ID = [id number] for JONES OCHOA HGB/HCT (H&H) - STAT [id number] 12:37:00 Test Item Value Reference Range Interpretation Comments HEMOGLOBIN (BEAKER) (test code = 12.8 GM/DL 13.0-16.8 L 410) HEMATOCRIT (BEAKER) (test code = 38.0 % 40.0-50.0 L 411) POTASSIUM-STAT [id number] 12:36:00 Test Item Value Reference Range Interpretation Comments POTASSIUM (BEAKER) (test code = 3.7 meq/L 3.6-5.5 379) GLUCOSE-STAT [id number] 12:36:00 Test Item Value Reference Range Interpretation Comments GLUCOSE RANDOM (BEAKER) (test code 103 mg/dL 70-110 = 652) CBC W/PLT COUNT & AUTO [id number] 14:00:00 Test Item Value Reference Range Interpretation Comments WHITE BLOOD CELL COUNT 9.4 K/ L 3.5-10.5 (BEAKER) (test code = 775) RED BLOOD CELL COUNT 4.79 M/ L 4.63-6.08 (BEAKER) (test code = 761) HEMOGLOBIN (BEAKER) 14.6 GM/DL 13.7-17.5 (test code = 410) HEMATOCRIT (BEAKER) 43.9 % 40.1-51.0 (test code = 411) MEAN CORPUSCULAR VOLUME 91.6 fL 79.0-92.2 (BEAKER) (test code = 753) MEAN CORPUSCULAR 30.5 pg 25.7-32.2 HEMOGLOBIN (BEAKER) (test code = 751) MEAN CORPUSCULAR 33.3 GM/DL 32.3-36.5 HEMOGLOBIN CONC (BEAKER) (test code = 752) RED CELL DISTRIBUTION 13.5 % 11.6-14.4 WIDTH (BEAKER) (test code = 412) PLATELET COUNT (BEAKER) 292 K/CU MM 150-450 EDTA clumper; (test code = 756) platelet c ount taken from citr ate blue tube speci men MEAN PLATELET VOLUME 11.4 fL 9.4-12.4 (BEAKER) (test code = 754) NUCLEATED RED BLOOD 0 /100 WBC 0-0 CELLS (BEAKER) (test code = 413) NEUTROPHILS RELATIVE 80 % PERCENT (BEAKER) (test code = 429) LYMPHOCYTES RELATIVE 13 % PERCENT (BEAKER) (test code = 430) MONOCYTES RELATIVE 6 % PERCENT (BEAKER) (test code = 431) EOSINOPHILS RELATIVE 1 % PERCENT (BEAKER) (test code = 432) BASOPHILS RELATIVE 1 % PERCENT (BEAKER) (test code = 437) NEUTROPHILS ABSOLUTE 7.51 K/ L 1.78-5.38 H COUNT (BEAKER) (test code = 670) LYMPHOCYTES ABSOLUTE 1.21 K/ L 1.32-3.57 L COUNT (BEAKER) (test code = 414) MONOCYTES ABSOLUTE 0.52 K/ L 0.30-0.82 COUNT (BEAKER) (test code = 415) EOSINOPHILS ABSOLUTE 0.07 K/ L 0.04-0.54 COUNT (BEAKER) (test code = 416) BASOPHILS ABSOLUTE 0.05 K/ L 0.01-0.08 COUNT (BEAKER) (test code = 417) IMMATURE 1 % 0-1 GRANULOCYTES-RELATIVE PERCENT (BEAKER) (test code = 2801) COMPREHENSIVE METABOLIC [id number] 13:40:00 Test Item Value Reference Range Interpretation Comments TOTAL PROTEIN 7.6 gm/dL 6.0-8.3 (BEAKER) (test code = 770) ALBUMIN (BEAKER) 4.1 g/dL 3.5-5.0 (test code = 1145) ALKALINE PHOSPHATASE 88 U/L 40-150 (BEAKER) (test code = 346) BILIRUBIN TOTAL 0.6 mg/dL 0.2-1.2 (BEAKER) (test code = 377) SODIUM (BEAKER) (test 137 meq/L 136-145 code = 381) POTASSIUM (BEAKER) 4.3 meq/L 3.5-5.1 (test code = 379) CHLORIDE (BEAKER) 101 meq/L 98-107 (test code = 382) CO2 (BEAKER) (test 29 meq/L 22-29 code = 355) BLOOD UREA NITROGEN 17 mg/dL 7-21 (BEAKER) (test code = 354) CREATININE (BEAKER) 0.95 mg/dL 0.57-1.25 (test code = 358) GLUCOSE RANDOM 98 mg/dL 70-105 (BEAKER) (test code = 652) CALCIUM (BEAKER) 10.1 mg/dL 8.4-10.2 (test code = 697) AST (SGOT) (BEAKER) 23 U/L 5-34 (test code = 353) ALT (SGPT) (BEAKER) 25 U/L 6-55 (test code = 347) EGFR (BEAKER) (test 75 mL/min/1.73 ESTIMA TORI GFR IS code = 1092) sq m NOT ACCURATE CREATININE CLEARANCE IN PREDICTING GLOMERULAR FILTRATION RATE . ESTIMATED GFR I S NOT APPLICABLE FOR DIALYSIS PATIEN TS. Shot Polisher ID - RADHA [id number] 12:48:00 Test Item Value Reference Range Interpretation Comments PARTIAL THROMBOPLASTIN TIME 38.9 seconds 22.5-36.0 H (BEAKER) (test code = 760) PROTHROMBIN [id number] 12:47:00 Test Item Value Reference Range Interpretation Comments PROTIME (BEAKER) 13.1 seconds 11.9-14.2 (test code = 759) INR (BEAKER) (test 1.01 See_Comment [Automat ed message] code = 370) The system [employer] generated this result transmitted ref erence range: <=5.90. The reference range was not used to int erpret this result as normal/abnormal . RECOMMENDED COUMADIN/WARFARIN INR THERAPY RANGESSTANDARD DOSE: 2.0 - 3.0 Includes: PROPHYLAXIS forvenous thrombosis, systemic embolization; TREATMENT for venous thrombosis and/or pulmonary embolus.HIGH RISK: Target INR is 2.5-3.5 for patients with mechanical heart valves.PROTHROMBIN [id number] 12:45:00 Test Item Value Reference Range Interpretation Comments PROTIME (BEAKER) 12.4 seconds 11.9-14.2 (test code = 759) INR (BEAKER) (test 0.95 See_Comment [Automat ed message] code = 370) The system [employer] generated this result transmitted ref erence range: <=5.90. The reference range was not used to int erpret this result as normal/abnormal . RECOMMENDED COUMADIN/WARFARIN INR THERAPY RANGESSTANDARD DOSE: 2.0 - 3.0 Includes: PROPHYLAXIS forvenous thrombosis, systemic embolization; TREATMENT for venous thrombosis and/or pulmonary embolus.HIGH RISK: Target INR is 2.5-3.5 for patients with mechanical heart valves.
[2022-01-02] MEDS ORDERED: LIDOCAINE 1% MPF 5 ML VIAL ONE (11:20)
[2022-01-02] MEDS ORDERED: BUPIVACAINE 0.5% PF 10 ML VIAL ONE (11:20)
[2022-01-02] MEDS ORDERED: TETANUS & DIPHTHERIA TOX,ADULT 0.5 ML VIAL ONE (11:21)
--- NOTE | 2022-01-02 12:40 | RAD REPORT ---
EXAM DESCRIPTION: RAD - Shoulder Right 2 View - 01/02/2022 12:33 pm CLINICAL HISTORY: fall Fall, trauma, pain COMPARISON: Shoulder Right 2 View dated 03/19/2021 FINDINGS: High-riding humeral head is present with subacromial outlet narrowing likely related to un derlying rotator cuff tear. 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 No acute fracture or dislocation.
--- NOTE | 2022-01-02 12:43 | ER ---
Nurse's Notes [facility] Name: Blaine Gomez Age: 89 yrs Sex: Male : 1930 Arrival Date: 01/02/2022 Time: 09:48 Bed 10 Private MD: Shayan Boone V Diagnosis: Cutaneous Laceration of the Right Upper Extremity Presentation: 01/02 10:21 Chief complaint: Patient states: this morning I tripped and fell , laceration too right iw forearm from hitting the floor, did not hit head. Coronavirus screen: At this time, the client does not indicate any symptoms associated with coronavirus-19. Ebola Screen: Patient negative for fever greater than or equal to 101.5 degrees Fahrenheit, and additional compatible Ebola Virus Disease symptoms Patient denies exposure to infectious person. Patient denies travel to an Ebola-affected area in the 21 days before illness onset. No symptoms or risks identified at this time. Complicating Factors: There are no complicating factors for this patient. Initial Sepsis Screen: Does the patient meet any 2 criteria? No. Patient's initial sepsis screen is negative. Does the patient have a suspected source of infection? No. Patient's initial sepsis screen is negative. Risk Assessment: Do you want to hurt yourself or someone else? Patient reports no desire to harm self or others. Onset of symptoms was January 02, 2022. 10:21 Method Of Arrival: Ambulatory iw 10:21 Acuity: MANDEEP 4 iw Historical: - Allergies: 10:22 Codeine; iw 10:22 PENICILLINS; iw - PMHx: 10:22 Hypercholesterolemia; iw - PSHx: 10:22 bilateral carotid; Coronary artery bypass graft; iw - Immunization history:: Adult Immunizations. - Social history:: Smoking status: Patient denies any tobacco usage or history of. Screenin:18 Abuse screen: Denies threats or abuse. Denies injuries from another. Nutritional iw screening: No deficits noted. Tuberculosis screening: No symptoms or risk factors identified. Fall Risk Fall in past 12 months (25 points). Assessment: 11:17 General: Appears in no apparent distress. Behavior is calm, cooperative. Pain: iw Complains of pain in right arm. Neuro: Level of Consciousness is awake, alert, obeys commands, Oriented to person, place, time, situation. Cardiovascular: Patient's skin is warm and dry. Respiratory: Respiratory effort is even. Derm: Skin is intact, is healthy with good turgor. Musculoskeletal: Range of motion: intact in all extremities. Injury Description: Laceration sustained to right elbow is skin tear. Vital Signs: 10:22 BP 154 / 110; Pulse 72; Resp 16; Temp 98.2; Pulse Ox 100% on R/A; iw ED Course: 09:48 Patient arrived in ED. rg4 09:49 Shayan Boone MD is Private Physician. rg4 09:52 [facility] m 09:52 Brendan Escalona MD is Attending Physician. jmm 10:22 Triage completed. iw 11:15 Carla Armendariz, RN is Primary Nurse. iw 12:34 Shoulder Right (2 View) XRAY In Process Unspecified. EDMS 12:42 Shayan Boone MD is Referral Physician. jmm 12:54 Arm band placed on right wrist. drew 12:54 Patient has correct armband on for positive identification. Bed in low position. drew 12:54 No provider procedures requiring assistance completed. Patient did not have IV access drew during this emergency room visit. Administered Medications: 11:23 Drug: Lidocaine (1 %) 20 ml {Note: Administered by PA. Neo} Volume: 20 ml; Route: ss Infiltration; 11:23 Drug: Marcaine (bupivacaine) (0.5 %) 10 ml {Note: administered by PA. Neo} Volume: 10 ss ml; Route: Infiltration; 11:25 Drug: Tetanus-Diphtheria Toxoid Adult 0.5 ml {Corn Detasseler: [employer]. Exp: ss 10/20/2023. Lot #: [id number]. } Route: IM; Site: left deltoid; 12:00 Follow up: Response: No adverse reaction iw Medication: 12:54 VIS not applicable for this client. drew Outcome: 12:43 Discharge ordered by . [facility] 12:54 Discharged to home ambulatory, with family. drew 12:54 Condition: good 12:54 Discharge instructions given to Prescriptions given X 1. 12:55 Patient left the ED. drew Signatures: Dispatcher [employer] EDMS Neo Ley PA PA jmm Williams, Irene, RN RN Wendy Stout RN RN ss Garcia, Rubi rg4 Au-Stager, Deirdre, RN RN drew
--- NOTE | 2022-01-02 12:43 | EDPHYS ---
Physician Documentation [facility] Name: Blaine Gomez Age: 89 yrs Sex: Male : 1930 Arrival Date: 01/02/2022 Time: 09:48 Bed 10 Private MD: Shayan Boone V ED Physician Brendan Escalona HPI: 01/02 10:03 This 89 yrs old Male presents to ER via Unassigned with complaints of Laceration To Arm.jmm 10:03 The patient has a laceration related to: falling from a standing position. Onset: The jmm symptoms/episode began/occurred acutely, today. Associated signs and symptoms: Pertinent positives: laceration. It is unknown whether or not the patient has had similar symptoms in the past. Historical: - Allergies: 10:22 Codeine; iw 10:22 PENICILLINS; iw - PMHx: 10:22 Hypercholesterolemia; iw - PSHx: 10:22 bilateral carotid; Coronary artery bypass graft; iw - Immunization history:: Adult Immunizations. - Social history:: Smoking status: Patient denies any tobacco usage or history of. ROS: 10:03 Constitutional: Negative for fever, chills, and weight loss, Cardiovascular: Negative jmm for chest pain, palpitations, and edema, Respiratory: Negative for shortness of breath, cough, wheezing, and pleuritic chest pain. 10:03 MS/extremity: Positive for injury or acute deformity, laceration. 10:03 All other systems are negative. Exam: 10:03 Constitutional: This is a well developed, well nourished patient who is awake, alert, jmm and in no acute distress. Head/Face: atraumatic. Eyes: EOMI, no conjunctival erythema appreciated ENT: Moist Mucus Membranes Neck: Trachea midline, Supple Chest/axilla: Normal chest wall appearance and motion. Cardiovascular: Regular rate and rhythm. No edema appreciated Respiratory: Normal respirations, no respiratory distress appreciated Abdomen/GI: Non distended, soft Back: Normal ROM 10:03 Neuro: Awake and alert Psych: Behavior is normal, Mood is normal, Patient is cooperative and pleasant 10:03 Musculoskeletal/extremity: Range of motion appreciated to the right elbow and right shoulder, compartments are soft, full radial pulse, full it systems administrator strength, neurovascular intact. 10:03 Skin: injury, laceration(s). 10:03 Neuro: Orientation: is normal, Mentation: is normal. 10:03 Psych: Behavior/mood is pleasant, cooperative. Vital Signs: 10:22 BP 154 / 110; Pulse 72; Resp 16; Temp 98.2; Pulse Ox 100% on R/A; iw Laceration: 12:41 Wound Repair of 4cm ( 1.6in ) subcutaneous laceration to right arm. Distal jmm neuro/vascular/tendon intact. Anesthesia: Local anesthetic administered with 8 mls of Lido/Marcaine. Wound prep: Simple cleansing with hibiclenz by me. Skin closed with 8 3-0 Prolene using simple sutures and sterile technique. Patient tolerated well. MDM: 09:59 Patient medically screened. jmm 12:41 Data reviewed: vital signs, nurses notes. Counseling: I had a detailed discussion with marlo the patient and/or guardian regarding: the historical points, exam findings, and any diagnostic results supporting the discharge/admit diagnosis, radiology results, the need for outpatient follow up, to return to the emergency department if symptoms worsen or persist or if there are any questions or concerns that arise at home. ED course: Patient given wound infection return precautions. patient understood and agrees with the plan of care. . 01/02 11:39 Order name: Shoulder Right (2 View) XRAY; Complete Time: 12:41 [facility] Administered Medications: 11:23 Drug: Lidocaine (1 %) 20 ml {Note: Administered by PA. Neo} Volume: 20 ml; Route: ss Infiltration; 11:23 Drug: Marcaine (bupivacaine) (0.5 %) 10 ml {Note: administered by PA. Neo} Volume: 10 ss ml; Route: Infiltration; 11:25 Drug: Tetanus-Diphtheria Toxoid Adult 0.5 ml {Desk Interviewer: [employer]. Exp: ss 10/20/2023. Lot #: [id number]. } Route: IM; Site: left deltoid; 12:00 Follow up: Response: No adverse reaction iw Disposition: 13:49 Co-signature as Attending Physician, Brendan Escalona MD. rn Disposition Summary: 01/02/22 12:43 Discharge Ordered Location: [facility] Condition: [facility] Diagnosis - Cutaneous Laceration of the Right Upper Extremity [facility] Followup: [facility] [place] - With: Shayan Boone MD - When: 10 - 14 days - Reason: Recheck today's complaints, Continuance of care, Re-evaluation by your physician Discharge Instructions: - Discharge Summary Sheet marlo - Laceration Care, Adult marlo Forms: - Medication Reconciliation Form jaylyn - Thank You Letter marlo - Antibiotic Education marlo - Prescription Opioid Use jaylyn Prescriptions: - Doxycycline Hyclate 100 mg Oral Tablet - take 1 tablet by ORAL route every 12 hours; 20 tablet; Refills: 0, Product jm Selection Permitted Signatures: Dispatcher [employer] EDNeo Bourgeois PA PA jmm Williams, Irene, RN RN Brendan Connors MD MD rn Smirch, Shelby, RN RN Deirdre Harris RN RN drew
[2022-01-02 13:02] VITALS: BP 154/110; TEMP 98.2; O2SAT 100
== END 2022-01-02 12:55 | disposition home or self-care (01) ==
LOC: ER 09:45
PROC: 0JQG0ZZ Repair Right Lower Arm Subcutaneous Tissue and Fascia, Open Approach (ICD-10-PCS; principal; 2022-01-02)
DX: S41.111A Laceration without foreign body of right upper arm, initial encounter (principal); W18.30XA Fall on same level, unspecified, initial encounter; Z23 Encounter for immunization; Z95.1 Presence of aortocoronary bypass graft; Z88.0 Allergy status to penicillin; Z88.5 Allergy status to narcotic agent
CPT/HCPCS: 90471; 90714; 99283